=== PATIENT | female | born 1990 | race Caucasian/White ===

== ENCOUNTER 2016-12-28 18:40 | Emergency (ER) | payer MEDICAID ==
[2016-12-28] MEDS ORDERED: METOCLOPRAMIDE HCL 10 MG TABLET PO ONE (19:25)
[2016-12-28] MEDS ORDERED: ACETAMINOPHEN 325 MG TABLET PO ONE (19:25)
[2016-12-28] MEDS ORDERED: DIPHENHYDRAMINE HCL 25 MG CAPSULE PO ONE (19:25)
--- NOTE | 2016-12-28 19:35 | ER Document Report ---
ED Medical Screen (RME) - General Chief Complaint: OB Problem (<20wks) Stated Complaint: FEVER,NAUSEA Mode of Arrival: Ambulatory Information source: Patient Notes: 26-year-old female presents to the ED c/o nausea/vomiting, and fever. Reports associated near syncope worse with prolonged standing or when going from sitting to standing position. Reports is approximately 9 weeks , . Denies lower abd/pelvic pain or vaginal bleeding. I have greeted and performed a rapid initial assessment of this patient. A comprehensive ED assessment and evaluation of the patient, analysis of test results and completion of the medical decision making process will be conducted by additional ED providers. TRAVEL OUTSIDE OF THE [place] IN LAST 30 DAYS: No - Related Data Allergies/Adverse Reactions: doxycycline Allergy (Verified 12/28/16 19:24) Penicillins Allergy (Verified 12/28/16 19:24) Past Medical History - Social History Frequency of alcohol use: None Drug Abuse: None Renal/ Medical History: Denies: Hx Peritoneal Dialysis Past Surgical History: Reports: Hx Section - Immunizations Hx Diphtheria, Pertussis, Tetanus Vaccination: Yes Physical Exam - General General appearance: Appears well, Alert In distress: None - Respiratory Respiratory status: No respiratory distress
[2016-12-28 19:39] VITALS: BP 122/71
[2016-12-28 20:23] LABS: ABSOLUTE LYMPHOCYTES (AUTO) 0.8 10^3/uL (0.5-4.7); ABSOLUTE MONOCYTES (AUTO) 0.7 10^3/uL (0.1-1.4); ABSOLUTE NEUT (AUTO) 14.5 10^3/uL (1.7-8.2); BASOPHILS % (AUTO) 0.2 % (0-2); EOSINOPHILS % (AUTO) 0.1 % (0-6); HEMATOCRIT 38.7 % (36.0-47.0); HEMOGLOBIN 13.2 g/dL (12.0-15.5); HGB HCT DIFFERENCE 0.9; LYMPHOCYTES % (AUTO) 5.2 % (13-45); MEAN CORPUSCULAR HEMOGLOBIN 30.3 pg (27.0-33.4); MEAN CORPUSCULAR HGB CONC 34.2 g/dL (32.0-36.0); MEAN CORPUSCULAR VOLUME 89 fl (80-97); MONOCYTES % (AUTO) 4.2 % (3-13); RED BLOOD COUNT 4.36 10^6/uL (3.72-5.28); RED CELL DISTRIBUTION WIDTH 13.2 % (11.5-14.0); SEGMENTED NEUTROPHILS % (AUTO) 90.3 % (42-78)
[2016-12-28 20:26] LABS: APPEARANCE,URINE CLEAR; BILIRUBIN,URINE NEGATIVE (NEGATIVE); GLUCOSE, URINE NEGATIVE (NEGATIVE); KETONES,URINE NEGATIVE (NEGATIVE); LEUKOCYTE ESTERASE,URINE NEGATIVE (NEGATIVE); NITRITE,URINE NEGATIVE (NEGATIVE); PROTEIN,URINE NEGATIVE (NEGATIVE); URINE SPECIFIC GRAVITY 1.004; UROBILINOGEN,URINE NEGATIVE mg/dL (<2.0)
[2016-12-28 20:38] LABS: ALANINE AMINOTRANSFERASE 20 U/L (9-52); ALBUMIN 4.4 g/dL (3.5-5.0); ALKALINE PHOSPHATASE 70 U/L (38-126); ANION GAP 13 (5-19); ASPARTATE AMINO TRANSFERASE 17 U/L (14-36); BILIRUBIN,TOTAL 0.7 mg/dL (0.2-1.3); BLOOD UREA NITROGEN 8 mg/dL (7-20); CALCIUM 9.6 mg/dL (8.4-10.2); CARBON DIOXIDE 23 mmol/L (22-30); CHLORIDE 100 mmol/L (98-107); CREATININE RESULT 0.52 mg/dL (0.52-1.25); GLUCOSE 93 mg/dL (75-110); POTASSIUM 3.9 mmol/L (3.6-5.0); SODIUM 136.1 mmol/L (137-145); TOTAL PROTEIN 7.1 g/dL (6.3-8.2)
== END 2016-12-28 23:55 | disposition left against medical advice (07) ==
LOC: ER 18:40
DX: O26.91 Pregnancy related conditions, unspecified, first trimester (principal); R50.9 Fever, unspecified; O21.9 Vomiting of pregnancy, unspecified; Z88.0 Allergy status to penicillin
CPT/HCPCS: 99281; 36415; 84702; 85025; 80053; 81001; 87804; J3490 ×3

== ENCOUNTER 2019-06-29 09:06 | Emergency (ER) | payer SELFPAY ==
[2019-06-29 09:12] VITALS: BP 139/88
--- NOTE | 2019-06-29 09:17 | ER Document Report ---
HPI - HPI Time Seen by Provider: 06/29/19 09:15 Pain Level: 4 Notes: 29-year-old female presents the ED for evaluation of a cat bite to her right index finger that she sustained yesterday at 3:30 PM, states it was her friend's cat. Noticed this morning that she had redness to her right index finger, and traveled all the way up to her right upper forearm. Denies any fevers or chills, states she does have some pain in her right index finger. Has not tried any myaw-wcz-zxwlptn medications, has not tried any heat or ice. Her tetanus is not up-to-date. The cat as far she knows does have her rabies vaccination however she is filling out a cat bite form to submit to the health department. Denies fevers, chills, chest pain,palpitations, shortness of breath, dyspnea, nausea, vomiting, diarrhea, abdominal pain, hematuria, vision changes, speech changes, LH, dizziness, syncope, headaches, wheezing, neck pain, weakness, bowel or bladder dysfunction, saddle anesthesia, numbness or tingling in bilateral upper or lower extremities equally, muscle paralysis, weakness in bilateral upper or lower extremities equally or rash. - REPRODUCTIVE Reproductive: DENIES: : Past Medical History - General Information source: Patient - Social History Smoking Status: Unknown if Ever Smoked Family History: Reviewed & Not Pertinent Renal/ Medical History: Denies: Hx Peritoneal Dialysis Past Surgical History: Reports: Hx Section - Immunizations Hx Diphtheria, Pertussis, Tetanus Vaccination: Yes Vertical Provider Document - CONSTITUTIONAL Agree With Documented VS: Yes Exam Limitations: No Limitations General Appearance: WD/WN Notes: PHYSICAL EXAMINATION: GENERAL: Well-appearing, well-nourished and in no acute distress. HEAD: Atraumatic, normocephalic. ENT: Nares patent, oropharynx clear without exudates. Moist mucous membranes. NECK: Normal range of motion, supple without lymphadenopathy LUNGS: Breath sounds clear to auscultation bilaterally and equal. No wheezes rales or rhonchi. HEART: Regular rate and rhythm without murmurs ABDOMEN: Soft, nontender, nondistended abdomen. No guarding, no rebound. No masses appreciated. Female : deferred Musculoskeletal: Normal range of motion, no pitting or edema. No cyanosis. Pain to right 2nd phalange with ntoed erythema and swelling. no pain to wrist with flexion, extension, inversion, eversion of wrist. digits in right and left with full aprom.. [employer] + 2 BUE equally. Snuffbox tenderness negative on right. radial pulses + 2 BUE equally. Negative kanavels sign. No open wounds or drainage from wrist. No vascular compromise.No body crepitus or focal area of TTP. no pain with opposition, flexion, extension, abduction and adduction on right. No pain with passive resistance with extension of right index finger or any fingers on the right hand. nomral motor and sensory function of ulnar, radial, medial nerves intact bilaterally and equally. strength 5/5 in BUE equally. NEUROLOGICAL: Cranial nerves grossly intact. Normal speech, normal gait. Normal sensory, motor exams PSYCH: Normal mood, normal affect. SKIN: Warm, Dry, normal turgor, no rashes or lesions noted. - INFECTION CONTROL TRAVEL OUTSIDE OF THE [place] IN LAST 30 DAYS: No Course - Re-evaluation Re-evalutation: 06/29/19 09:40 Afebrile vital stable no distress. Nurse's notes reviewed. Tetanus immunization given since patient was out of date. Patient had just eaten breakfast prior to arrival of her blood being taken, serum glucose 113, patient is not a diabetic. CBC slight leukocytosis of 11, no anemia, CMP unremarkable hepatic or renal dysfunction.Right finger x-ray was negative for any acute fracture dislocation, no gas noted. 1 g of Rocephin given IM. Erythema on skin marked with a marker, discussed the patient if redness extends out of marked area to return to the ED immediately for further evaluation. Advised to take oral clindamycin and ciprofloxacin due to the fact patient is allergic to penicillins and doxycycline, patient was bitten by cat as well as scratched. Discussed with patient to follow-up with PCP tomorrow morning for reevaluation or she is unable to be reevaluated by her primary care provider to return to the emergency room. After performing a Medical Screening Examination, I estimate there is LOW risk for OPEN FRACTURE, COMPARTMENT SYNDROME, TENDON RUPTURE, ACUTE NEUROVASCULAR INJURY, or RETAINED FOREIGN BODY, thus I consider the discharge disposition reasonable. Also, there is no evidence or peritonitis, sepsis, or toxicity. I have reevaluated this patient multiple times and no significant life threatening changes are noted. The patient and I have discussed the diagnosis and risks, and we agree with discharging home with close follow-up with the understanding that symptoms and presentations can change. We also discussed returning to the Emergency Department immediately if new or worsening symptoms occur. We have discussed the symptoms which are most concerning (e.g., changing or worsening pain, fever, numbness, weakness, cool or painful digits) that necessitate immediate return. 06/29/19 12:18 - Vital Signs Vital signs: Temp Pulse Resp BP Pulse Ox 98.0 F 96 15 139/88 H 95 06/29/19 09:10 06/29/19 09:10 06/29/19 09:10 06/29/19 09:10 06/29/19 09:10 - Laboratory Result Diagrams: 06/29/19 09:35 06/29/19 09:35 Discharge - Discharge Clinical Impression: Cat bite of finger, Cellulitis Condition: Stable Disposition: HOME, SELF-CARE Instructions: Animal Bites ([facility]), Cellulitis ([facility]), Ciprofloxacin ([facility]), Clindamycin ([facility]) Additional Instructions: Please monitor very closely for any signs of infection from your cat bite including spreading redness from the area, pus from the wound, or worsening pain. Clean the area twice daily with soap and water and then apply topical antibiotic ointment. if redness extends out of marked area, return to the ED for re evaluation and IV abx. Please take all the antibiotics that you were prescribed until they are gone. eat yogurt daily to prevent loose stool. Follow-up with your primary care physician as needed. Return immediately for any new or worsening symptoms. Follow up with primary care provider, call tomorrow to make followup appointment. Prescriptions: Ciprofloxacin HCl [Cipro 500 mg Tablet] 500 mg PO BID #20 tablet Clindamycin HCl 300 mg PO Q6H #28 capsule Fluconazole [Diflucan] 150 mg PO ONCE PRN #2 tablet PRN Reason: Forms: Return to Work Referrals: NICHOLAS MCKEON MD [ACTIVE STAFF] - Follow up tomorrow DAVY WILSON MD [ACTIVE PROVISIONAL STAFF] - Follow up as needed
[2019-06-29] MEDS ORDERED: CEFTRIAXONE INJ 1000 MG VIAL IM ONE (09:20)
[2019-06-29] MEDS ORDERED: LIDOCAINE 1% INJ-PF (10 MG/ML) 30 ML SDV INJ ONE (09:20)
[2019-06-29] MEDS ORDERED: DIPH/PERTUSS(ACELL)/TETANUS VAC/PF 0.5 ML SYR (>=10YO) IM ONE (09:36)
[2019-06-29 09:55] LABS: ABSOLUTE BASOPHILS # (AUTO) 0.1 10^3/uL (0.0-0.2); ABSOLUTE EOSINOPHILS # (AUTO) 0.1 10^3/uL (0.0-0.6); ABSOLUTE LYMPHOCYTES (AUTO) 1.5 10^3/uL (0.5-4.7); ABSOLUTE MONOCYTES (AUTO) 1.2 10^3/uL (0.1-1.4); ABSOLUTE NEUT (AUTO) 8.2 10^3/uL (1.7-8.2); BASOPHILS % (AUTO) 0.6 % (0-2); EOSINOPHILS % (AUTO) 0.5 % (0-6); HEMATOCRIT 47.3 % (36.0-47.0); HEMOGLOBIN 15.9 g/dL (12.0-15.5); LYMPHOCYTES % (AUTO) 13.8 % (13-45); MEAN CORPUSCULAR HEMOGLOBIN 30.4 pg (27.0-33.4); MEAN CORPUSCULAR HGB CONC 33.7 g/dL (32.0-36.0); MEAN CORPUSCULAR VOLUME 90 fl (80-97); MONOCYTES % (AUTO) 10.8 % (3-13); PLATELET COUNT 212 10^3/uL (150-450); RED BLOOD COUNT 5.25 10^6/uL (3.72-5.28); RED CELL DISTRIBUTION WIDTH 13.6 % (11.5-14.0); SEGMENTED NEUTROPHILS % (AUTO) 74.3 % (42-78); TOTAL CELLS COUNTED % (AUTO) 100 %
--- NOTE | 2019-06-29 10:06 | RADIOLOGY REPORT (SQ) ---
EXAM DESCRIPTION: FINGER RIGHT COMPLETED DATE/TIME: 06/29/2019 9:36 am REASON FOR STUDY: right index, cat bite, r/o fb/fx COMPARISON: None. NUMBER OF VIEWS: Three views. TECHNIQUE: AP, lateral, and oblique images acquired of the right second finger. LIMITATIONS: None. FINDINGS: MINERALIZATION: Normal. BONES: No acute fracture or dislocation. No worrisome bone lesions. SOFT TISSUES: No soft tissue swelling. No foreign body. OTHER: No other significant finding. IMPRESSION: No fracture or dislocation of the 2nd digit. No radiopaque foreign body. COMMENT: SITE OF TRAUMA/COMPLAINT MARKED/STAMP COMPLETED: YES. TECHNICAL DOCUMENTATION: JOB ID: [id number] [employer]- All Rights Reserved Reading location - IP/workstation name: [email or web address]
[2019-06-29 10:28] LABS: ALBUMIN 4.8 g/dL (3.5-5.0); ALKALINE PHOSPHATASE 120 U/L (38-126); ANION GAP 14 (5-19); ASPARTATE AMINO TRANSFERASE 32 U/L (14-36); BILIRUBIN,DIRECT 0.3 mg/dL (0.0-0.4); BILIRUBIN,TOTAL 0.3 mg/dL (0.2-1.3); BLOOD UREA NITROGEN 13 mg/dL (7-20); CALCIUM 10.3 mg/dL (8.4-10.2); CARBON DIOXIDE 29 mmol/L (22-30); CHLORIDE 94 mmol/L (98-107); GLUCOSE 119 mg/dL (75-110); POTASSIUM 3.9 mmol/L (3.6-5.0); TOTAL PROTEIN 8.1 g/dL (6.3-8.2)
== END 2019-06-29 10:15 | disposition home or self-care (01) ==
LOC: ER 09:06
DX: S61.250A Open bite of right index finger without damage to nail, initial encounter (principal); W55.01XA Bitten by cat, initial encounter; L03.90 Cellulitis, unspecified; D72.829 Elevated white blood cell count, unspecified; Z23 Encounter for immunization
CPT/HCPCS: 36415; 85025; 80053; 73140; 90715; J3490; J0696

== ENCOUNTER 2020-04-13 10:28 | Inpatient (IN) | payer SELFPAY ==
--- NOTE | 2020-04-13 11:01 | ER Document Report ---
ED General - General Chief Complaint: Abnormal Lab Results Stated Complaint: ABNORMAL LABS Time Seen by Provider: 04/13/20 10:59 Mode of Arrival: Medic Information source: Patient Notes: 30-year-old female presents to the emergency department with a four-day history of dysuria lower abdominal pain flank pain fever and nausea and vomiting. She was seen at [facility] yesterday and apparently given IV fluids and IV antibiotics for urinary tract infection. Patient states that she went back today because she has continued to have vomiting and was unable to take the Cipro which she was given as an outpatient. Labs were performed and she was found to have an elevated white blood cell count of 17,000 along with a creatinine of 1.5. She was sent to the emergency department for further e valuation and possible pyelonephritis or early sepsis. TRAVEL OUTSIDE OF THE [place] IN LAST 30 DAYS: No - Related Data Allergies/Adverse Reactions: doxycycline Allergy (Verified 06/29/19 09:08) Penicillins Allergy (Verified 06/29/19 09:08) Past Medical History - Social History Smoking Status: Current Every Day Smoker Family History: Reviewed & Not Pertinent Renal/ Medical History: Denies: Hx Peritoneal Dialysis Past Surgical History: Reports: Hx Section - Immunizations Hx Diphtheria, Pertussis, Tetanus Vaccination: Yes Review of Systems - Review of Systems Notes: Constitutional: + Fever. HENT: Negative for sore throat. Eyes: Negative for visual changes. Cardiovascular: Negative for chest pain. Respiratory: Negative for shortness of breath. Gastrointestinal: Negative for abdominal pain, vomiting or diarrhea. Genitourinary: + Lower abdominal tenderness, dysuria Musculoskeletal: + Flank pain Skin: Negative for rash. Neurological: Negative for headaches, weakness or numbness. 10 point ROS negative except as marked above and in HPI. Physical Exam - Vital signs Vitals: Temp Pulse BP Pulse Ox 98.6 F 123 H 83/52 L 99 04/13/20 10:31 04/13/20 10:31 04/13/20 10:04/13/20 10:31 - Notes Notes: PHYSICAL EXAMINATION: Physical Exam: General: Well-nourished well-developed 30-year-old female appears ill HEENT: NC/AT, pupils equal round and reactive to light, clear dry and cracked, MM moist,nares clear, oropharynx clear, airway patent Neck: supple, no adenopathy, no masses. Good range of motion Lungs: clear, no wheezing, no rales no rhonchi CVS: Regular rate and rhythm no murmur gallop or rub Abdomen: Soft, active, nontender, no masses, no hepatosplenomegaly Back: + CVA tenderness bilaterally Ext: No edema, clubbing or cyanosis. Neuro: Alert and responsive, moving all 4 extremities on command, cranial nerves intact, no focal findings Skin: Intact no open lesions, no rash PSYCH: Normal mood, normal affect. Course - Re-evaluation Re-evalutation: 04/13/20 15:01 Patient is failed outpatient treatment for urinary tract infection no dehydration with hypokalemia hypomagnesia anemia and hyponatremia. She has had multiple vomiting episodes at home and unable to keep down the antibiotics and medicines for vomiting. She is now receiving IV antibiotics and sepsis evaluation is being performed. Lactate was 1.4, patient has some flank pain. CT scan performed unremarkable except for multiple renal cyst and 2 mm right renal calcification likely stone. No hydronephrosis is noted. The patient has been recommended for hospitalization, the hospitalist Dr. Best was called states that he will see the patient in the emergency department to determine level of care needed in the hospital. - Vital Signs Vital signs: Temp Pulse Resp BP Pulse Ox 100.3 F 100 16 115/57 L 100 04/13/20 18:21 04/13/20 18:21 04/13/20 18:21 04/13/20 18:21 04/13/20 18:21 - Laboratory Result Diagrams: 04/13/20 10:50 04/13/20 10:50 Laboratory results interpreted by me: 04/13/20 04/13/20 04/13/20 10:50 10:50 10:50 WBC 13.6 H Plt Count 102 L Seg Neuts % (Manual) 91 H Lymphocytes % (Manual) 2 L Abs Neuts (Manual) 12.9 H Abs Lymphs (Manual) 0.3 L Sodium 129.1 L Potassium 3.0 L* Chloride 92 L BUN 35 H Creatinine 1.78 H Est GFR ( Amer) 40 L Est GFR (MDRD) Non-Af 33 L Glucose 121 H Calcium 6.7 L* Magnesium 0.9 L* AST 55 H Total Protein 5.9 L Albumin 2.9 L Urine Protein Urine Blood Ur Leukocyte Esterase 04/13/20 13:30 WBC Plt Count Seg Neuts % (Manual) Lymphocytes % (Manual) Abs Neuts (Manual) Abs Lymphs (Manual) Sodium Potassium Chloride BUN Creatinine Est GFR ( Amer) Est GFR (MDRD) Non-Af Glucose Calcium Magnesium AST Total Protein Albumin Urine Protein 100 H Urine Blood LARGE H Ur Leukocyte Esterase LARGE H - Diagnostic Test Radiology reviewed: Image reviewed, Reports reviewed - CT abdomen and pelvis with noncontrast: No acute findings, multiple bilateral renal cysts identified, right 2 mm renal calcification with no hydronephrosis noted. Discharge - Discharge Clinical Impression: Volume depletion, ROSALINA (acute kidney injury), Hyponatremia, Hypokalemia, Hypomagnesemia Urinary tract infection Qualifiers: Urinary tract infection type: acute cystitis Hematuria presence: without hematuria Qualified Code(s): N30.00 - Acute cystitis without hematuria Condition: Fair Disposition: ADMITTED INPATIENT Admitting Provider: Nasir (Hospitalist) Unit Admitted: Telemetry
[2020-04-13 11:11] LABS: HEMOGLOBIN 13.9 g/dL (12.0-15.5); MEAN CORPUSCULAR HEMOGLOBIN 32.6 pg (27.0-33.4); MEAN CORPUSCULAR HGB CONC 34.7 g/dL (32.0-36.0); MEAN CORPUSCULAR VOLUME 94 fl (80-97); PLATELET COUNT 102 10^3/uL (150-450); RED BLOOD COUNT 4.26 10^6/uL (3.72-5.28); RED CELL DISTRIBUTION WIDTH 13.5 % (11.5-14.0); WHITE BLOOD COUNT 13.6 10^3/uL (4.0-10.5)
[2020-04-13] MEDS ORDERED: NORMAL SALINE 1000 ML 1,500 ML IV PRN (11:18)
[2020-04-13] MEDS ORDERED: CEFTRIAXONE INJ 1000 MG VIAL IV ONE (11:21)
[2020-04-13 11:30] LABS: ALBUMIN 2.9 g/dL (3.5-5.0); ALKALINE PHOSPHATASE 72 U/L (38-126); ANION GAP 9 (5-19); ASPARTATE AMINO TRANSFERASE 55 U/L (14-36); BILIRUBIN,DIRECT 0.1 mg/dL (0.0-0.4); BILIRUBIN,TOTAL 0.4 mg/dL (0.2-1.3); BLOOD UREA NITROGEN 35 mg/dL (7-20); CARBON DIOXIDE 28 mmol/L (22-30); CHLORIDE 92 mmol/L (98-107); GLUCOSE 121 mg/dL (75-110); TOTAL PROTEIN 5.9 g/dL (6.3-8.2)
[2020-04-13 11:31] LABS: ABSOLUTE LYMPHOCYTES# (MANUAL) 0.3 10^3/uL (0.5-4.7); ABSOLUTE MONOCYTES # (MANUAL) 0.4 10^3/uL (0.1-1.4); BAND NEUTROPHILS % (MANUAL) 4 % (3-5); BASOPHILS % (MANUAL) 0 % (0-2); EOSINOPHILS % (MANUAL) 0 % (0-6); LYMPHOCYTES % (MANUAL) 2 % (13-45); MONOCYTES % (MANUAL) 3 % (3-13); SEGMENTED NEUTROPHILS % (MAN) 91 % (42-78); TOTAL CELLS COUNTED 100
[2020-04-13 11:32] LABS: RBC MORPHOLOGY COMMENT NORMO-CYTIC/CHROMIC
[2020-04-13] MEDS ORDERED: ONDANSETRON HCL INJ/PF 4 MG/2 ML SDV IV ONE (11:32)
[2020-04-13] MEDS ORDERED: MORPHINE SULFATE 10 MG/ML INJ IV ONE ×2 (11:32→14:52)
[2020-04-13 11:33] LABS: PLATELET COMMENT DECREASED
[2020-04-13 11:39] LABS: CALCIUM 6.7 mg/dL (8.4-10.2)
--- NOTE | 2020-04-13 12:55 | RADIOLOGY REPORT (SQ) ---
EXAM DESCRIPTION: CT ABD/PELVIS NO ORAL OR IV IMAGES COMPLETED DATE/TIME: 04/13/2020 12:19 pm REASON FOR STUDY: Bilateral flank pain COMPARISON: 10/18/2016 TECHNIQUE: CT scan of the abdomen and pelvis performed without intravenous or oral contrast. Images reviewed with lung, soft tissue, and bone windows. Reconstructed coronal and sagittal MPR images revi ewed. All images stored on PACS. All CT scanners at this facility use dose modulation, iterative reconstruction, and/or weight based d osing when appropriate to reduce radiation dose to as low as reasonably achievable (ALARA). [facility]: Dose Right [facility]: CareDose [facility]: Dose Right [facility]: Teradose 4D [facility]: Smart [employer] RADIATION DOSE: CT Rad equipment meets quality standard of care and radiation dose reduction techniq ues were employed. CTDIvol: 4.8 mGy. DLP: 248 mGy-cm.mGy. LIMITATIONS: None. FINDINGS: LOWER CHEST: No significant findings. No nodules or infiltrates. NON-CONTRASTED LIVER, SPLEEN, ADRENALS: Evaluation limited by lack of IV contrast. No identified sign ificant masses. PANCREAS: No masses. No peripancreatic inflammatory changes. GALLBLADDER: No calcified stones. No inflammatory changes to suggest cholecystitis. RIGHT KIDNEY AND URETER: Multiple cysts identified, generally increased in size and number. There are few 2 mm calcified stones. No hydronephrosis or hydroureter. LEFT KIDNEY AND URETER: Multiple cysts identified, generally increased in size and number.. No calcif ied stones. No hydronephrosis or hydroureter. AORTA AND RETROPERITONEUM: No aneurysm. No retroperitoneal masses or adenopathy. BOWEL AND PERITONEAL CAVITY: No obvious masses or inflammatory changes. No free fluid. APPENDIX: Normal. PELVIS, BLADDER, AND ABDOMINAL WALL:No abnormal masses. No free fluid. Unremarkable bladder. BONES: No acute findings. OTHER: No other significant finding. IMPRESSION: NO ACUTE FINDINGS.Multiple bilateral renal cysts identified, generally increased in size and number. There are few 2 mm right renal calcified stones. No calcified ureteral stones or hydrone phrosis-hydroureter. TECHNICAL DOCUMENTATION: JOB ID: [id number] Quality ID # [id number]: Final reports with documentation of one or more dose reduction techniques (e.g., Au tomated exposure control, adjustment of the mA and/or kV according to patient size, use of iterative reconstruction technique) 2010 [employer]- All Rights Reserved Reading location - IP/workstation name: [email or web address]
[2020-04-13] MEDS ORDERED: POTASSIUM CHLORIDE 10 MEQ TABLET.ER PO ONE (14:16)
[2020-04-13] MEDS ORDERED: POTASSI CL 20 MEQ/50 ML RIDER 20 MEQ/50 ML RTUPB IV ONE (14:16)
[2020-04-13 14:28] LABS: AMORPHOUS SEDIMENT,URINE TRACE /HPF; APPEARANCE,URINE CLOUDY; BILIRUBIN,URINE NEGATIVE (NEGATIVE); COLOR,URINE AMBER; GLUCOSE, URINE NEGATIVE (NEGATIVE); KETONES,URINE NEGATIVE (NEGATIVE); LEUKOCYTE ESTERASE,URINE LARGE (NEGATIVE); NITRITE,URINE NEGATIVE (NEGATIVE); PROTEIN,URINE 100 mg/dL (NEGATIVE); URINE SPECIFIC GRAVITY 1.013; UROBILINOGEN,URINE NEGATIVE mg/dL (<2.0)
[2020-04-13] MEDS: MAGNESIUM SULFATE/D5W 1 GM/100 ML RTUPB IV SCH ×2 (15:31→17:03)
--- NOTE | 2020-04-13 15:56 | PDOC H&P ---
History of Present Illness History of Present Illness: NICHOLAS WHITE is a 30 year old female with no significant past medical history who presents with fever and abnormal labs. She first got sick about a week ago she had some nausea and vomiting. She states she could not keep anything down for several days. She has had some nonspecific abdominal pain. She has had some intermittent dysuria. She went to [facility] a couple of days ago when they diagnosed her with a urinary tract infection and gave her some IV fluids and a shot of IV Rocephin. I gave her a prescription for Cipro but she says she has not been able to keep it down. They called her back and told her she needed to go to the hospital because she had a bunch of laboratory abnormalities. In addition to an abnormal urinalysis, she has a leukocytosis, hypokalemia, hypomagnesemia, and hypocalcemia. She also has an elevated creatinine. She has been treated for pyelonephritis in the past. Past Surgical History Past Surgical History: Reports: Section Social History Smoking Status: Unknown if Ever Smoked Family History Family History: Reviewed & Not Pertinent Parental Family History Reviewed: Yes Children Family History Reviewed: Yes Sibling(s) Family History Reviewed.: Yes Medication/Allergy Home Medications: Ciprofloxacin HCl [Cipro 500 mg Tablet] 500 mg PO BID #20 tablet 10/18/16 Hydrocodone/Acetaminophen [Brandon 5-325 mg Tablet] 1 tab PO Q6H PRN #8 tablet 10/18/16 Promethazine HCl [Phenergan 25 mg Tablet] 25 mg PO Q8H PRN #10 tablet 10/18/16 Ciprofloxacin HCl [Cipro 500 mg Tablet] 500 mg PO BID #20 tablet 06/29/19 Clindamycin HCl 300 mg PO Q6H #28 capsule 06/29/19 Fluconazole [Diflucan] 150 mg PO ONCE PRN #2 tablet 06/29/19 Allergies/Adverse Reactions: doxycycline Allergy (Verified 06/29/19 09:08) Penicillins Allergy (Verified 06/29/19 09:08) Review of Systems All systems: reviewed and no additional remarkable complaints except as stated - All systems were reviewed and were negative except as noted in the HPI Physical Exam Vital Signs: Temp Pulse Resp BP Pulse Ox 99.3 F 123 H 16 106/62 100 04/13/20 11:05 04/13/20 10:31 04/13/20 14:01 04/13/20 14:00 04/13/20 14:01 Intake & Output 04/12/20 04/13/20 04/14/20 06:59 06:59 06:59 Intake Total 1500 Balance 1500 Weight 49.895 kg General appearance: PRESENT: no acute distress, cooperative, disheveled, thin Head exam: PRESENT: atraumatic, normocephalic Eye exam: PRESENT: EOMI, PERRLA. ABSENT: conjunctival injection, nystagmus Ear exam: PRESENT: normal external ear exam Mouth exam: PRESENT: dry mucosa, neck supple Throat exam: ABSENT: post pharyngeal erythema Neck exam: PRESENT: full ROM. ABSENT: carotid bruit, JVD, lymphadenopathy, meningismus, tenderness, thyromegaly Respiratory exam: PRESENT: clear to auscultation dariel, symmetrical, unlabored. ABSENT: accessory muscle use, chest wall tenderness, crackles, prolonged expiratory phas, rhonchi, tachypnea, wheezes Cardiovascular exam: PRESENT: +S1, +S2, tachycardia Pulses: PRESENT: normal carotid pulses Vascular exam: PRESENT: normal capillary refill GI/Abdominal exam: PRESENT: normal bowel sounds, soft. ABSENT: distended, guarding, rebound, tenderness Extremities exam: ABSENT: clubbing, pedal edema Musculoskeletal exam: PRESENT: normal inspection. ABSENT: deformity Neurological exam: PRESENT: alert, awake, oriented to person, oriented to place, oriented to time, oriented to situation, CN II-XII grossly intact. ABSENT: motor sensory deficit Psychiatric exam: PRESENT: appropriate affect, normal mood Skin exam: PRESENT: dry, warm Results Laboratory Results: 04/13/20 10:50 04/13/20 10:50 04/13/20 04/13/20 04/13/20 10:50 10:50 10:50 WBC 13.6 H RBC 4.26 Hgb 13.9 Hct 40.0 MCV 94 MCH 32.6 MCHC 34.7 RDW 13.5 Plt Count 102 L Seg Neutrophils % Not Reportable Sodium 129.1 L Potassium 3.0 L* Chloride 92 L Carbon Dioxide 28 Anion Gap 9 BUN 35 H Creatinine 1.78 H Est GFR ( Amer) 40 L Glucose 121 H Lactic Acid Calcium 6.7 L* Magnesium 0.9 L* Total Bilirubin 0.4 AST 55 H Alkaline Phosphatase 72 Total Protein 5.9 L Albumin 2.9 L Urine Color Urine Appearance Urine pH Ur Specific Tippo Urine Protein Urine Glucose (UA) Urine Ketones Urine Blood Urine Nitrite Ur Leukocyte Esterase Urine WBC (Auto) Urine RBC (Auto) 04/13/20 04/13/20 04/13/20 11:39 13:30 13:30 WBC RBC Hgb Hct MCV MCH MCHC RDW Plt Count Seg Neutrophils % Sodium Potassium Chloride Carbon Dioxide Anion Gap BUN Creatinine Est GFR ( Amer) Glucose Lactic Acid 1.3 1.1 Calcium Magnesium Total Bilirubin AST Alkaline Phosphatase Total Protein Albumin Urine Color VIVIAN Urine Appearance CLOUDY Urine pH 5.0 Ur Specific [place]ippo 1.013 Urine Protein 100 H Urine Glucose (UA) NEGATIVE Urine Ketones NEGATIVE Urine Blood LARGE H Urine Nitrite NEGATIVE Ur Leukocyte Esterase LARGE H Urine WBC (Auto) 141 Urine RBC (Auto) 35 Impressions: Abdomen/Pelvis CT 04/13/20 11:31 IMPRESSION: NO ACUTE FINDINGS.Multiple bilateral renal cysts identified, generally increased in size and number. There are few 2 mm right renal calcified stones. No calcified ureteral stones or hydronephrosis-hydroureter. Assessment and Plan - Diagnosis (1) Sepsis Qualifiers: Sepsis type: sepsis due to unspecified organism Sepsis acute organ dysfunction status: with acute organ dysfunction Severe sepsis acute organ dysfunction type: acute renal failure Acute renal failure type: with acute tubular necrosis Severe sepsis shock status: without septic shock Qualified Code(s): A41.9 - Sepsis, unspecified organism; R65.20 - Severe sepsis without septic shock; N17.0 - Acute kidney failure with tubular necrosis Is this a current diagnosis for this admission?: Yes Plan: She had a fluid bolus in the ER. Continue to get IV fluids. Will monitor urine output. On empiric antibiotics for urinary tract infection. (2) Dehydration Is this a current diagnosis for this admission?: Yes Plan: IV fluids, monitor urine output (3) Nausea and vomiting Qualifiers: Vomiting type: bilious vomiting Qualified Code(s): R11.14 - Bilious vomiting Is this a current diagnosis for this admission?: Yes Plan: PRN Lynn (4) ROSALINA (acute kidney injury) Is this a current diagnosis for this admission?: Yes Plan: Suspect to be due to dehydration. Will give IV fluids and will repeat metabolic panel. (5) Hypokalemia Is this a current diagnosis for this admission?: Yes Plan: We will replace with IV supplement (6) Hypomagnesemia Is this a current diagnosis for this admission?: Yes Plan: Replace with IV supplement (7) Urinary tract infection Qualifiers: Urinary tract infection type: acute cystitis Hematuria presence: without hematuria Qualified Code(s): N30.00 - Acute cystitis without hematuria Is this a current diagnosis for this admission?: Yes Plan: CT of the abdomen and pelvis was negative for pyelonephritis. Urine cultures pending. Empiric blood cultures were checked. Empirically on Rocephin. (8) Hypocalcemia Is this a current diagnosis for this admission?: Yes Plan: Place with IV supplements (9) Hyponatremia Is this a current diagnosis for this admission?: Yes Plan: Likely due to volume depletion. Will give IV fluids and repeat metabolic panel. - Time Time Spent with patient: 35 or more minutes - Inpatient Certification Based on my medical assessment, after consideration of the patient's comorbidities, presenting symptoms, or acuity I expect that the services needed warrant INPATIENT care.: Yes I certify that my determination is in accordance with my understanding of Medicare's requirements for reasonable and necessary INPATIENT services [42 CFR 412.3e].: Yes Medical Necessity: Failure to Improve With Outpatient Therapy, Need Close Monitoring Due to Risk of Patient Decompensation, Need For IV Fluids, Need For Continuous Telemetry Monitoring, Need for IV Antibiotics, Risk of Complication if Not Cared For in Hospital
[2020-04-13] MEDS: CALCIUM GLUC IN NACL, ISO-OSM 1 GM/50 ML RTUPB IV SCH (17:02)
[2020-04-13] MEDS: ONDANSETRON HCL INJ/PF 4 MG/2 ML SDV IV PRN (17:56)
[2020-04-13] MEDS: ACETAMINOPHEN 325 MG TABLET PO PRN (19:47)
[2020-04-13] MEDS: HEPARIN SOD (PORCINE) 5,000 UNIT/ML 1 ML VIAL SUBCUT SCH (23:16)
[2020-04-14] MEDS: ONDANSETRON HCL INJ/PF 4 MG/2 ML SDV IV PRN ×2 (01:04→10:32)
[2020-04-14] MEDS: ACETAMINOPHEN 325 MG TABLET PO PRN (05:48)
[2020-04-14] MEDS: HEPARIN SOD (PORCINE) 5,000 UNIT/ML 1 ML VIAL SUBCUT SCH ×3 (06:10→21:52)
[2020-04-14 06:35] LABS: HEMATOCRIT 35.4 % (36.0-47.0); MEAN CORPUSCULAR HEMOGLOBIN 32.3 pg (27.0-33.4); MEAN CORPUSCULAR HGB CONC 33.9 g/dL (32.0-36.0); MEAN CORPUSCULAR VOLUME 95 fl (80-97); RED BLOOD COUNT 3.73 10^6/uL (3.72-5.28); RED CELL DISTRIBUTION WIDTH 13.9 % (11.5-14.0); WHITE BLOOD COUNT 9.7 10^3/uL (4.0-10.5)
[2020-04-14 07:03] LABS: BLOOD UREA NITROGEN 24 mg/dL (7-20); CARBON DIOXIDE 27 mmol/L (22-30); CHLORIDE 99 mmol/L (98-107); GLUCOSE 121 mg/dL (75-110); POTASSIUM 3.5 mmol/L (3.6-5.0)
[2020-04-14 07:06] LABS: PLATELET COUNT 93 10^3/uL (150-450)
[2020-04-14 07:38] LABS: ANION GAP 4 (5-19)
[2020-04-14] MEDS: CALCIUM GLUC IN NACL, ISO-OSM 1 GM/50 ML RTUPB IV SCH ×2 (08:59→10:28)
[2020-04-14] MEDS: CEFTRIAXONE 1 GM/D5W RTU 1 GM/50 ML RTUPB IV SCH (10:28)
[2020-04-14] MEDS: IBUPROFEN 600 MG TABLET PO PRN ×2 (11:23→19:36)
--- NOTE | 2020-04-14 16:45 | PDOC PROGRESS REPORT ---
Subjective Progress Note for:: 04/14/20 Subjective:: No adverse events overnight. No new complaints. Vital signs been stable. Appetite is starting to improve but is still pretty poor. No fevers. Good urine output. Reason For Visit: SEPSIS,PYELONEPHRITIS Physical Exam Vital Signs: Temp Pulse Resp BP Pulse Ox 98.4 F 75 16 124/63 100 04/14/20 14:00 04/14/20 14:00 04/14/20 14:00 04/14/20 14:00 04/14/20 14:00 Intake & Output 04/13/20 04/14/20 04/15/20 06:59 06:59 06:59 Intake Total 1750 450 Balance 1750 450 Weight 52 kg General appearance: PRESENT: no acute distress, cooperative, disheveled, thin Respiratory exam: PRESENT: clear to auscultation dariel, symmetrical, unlabored. ABSENT: accessory muscle use, chest wall tenderness, crackles, prolonged expiratory phas, rhonchi, tachypnea, wheezes Cardiovascular exam: PRESENT: RRR, +S1, +S2 Pulses: PRESENT: normal carotid pulses Vascular exam: PRESENT: normal capillary refill GI/Abdominal exam: PRESENT: normal bowel sounds, soft. ABSENT: distended, guarding, rebound, tenderness Extremities exam: ABSENT: clubbing, pedal edema Musculoskeletal exam: PRESENT: normal inspection. ABSENT: deformity Neurological exam: PRESENT: alert, awake, oriented to person, oriented to place, oriented to situation Psychiatric exam: PRESENT: appropriate affect, normal mood Skin exam: PRESENT: dry, warm Results Laboratory Results: 04/14/20 06:07 04/14/20 06:07 04/13/20 04/13/20 04/14/20 19:00 20:00 06:07 WBC 9.7 RBC 3.73 Hgb 12.0 Hct 35.4 L MCV 95 MCH 32.3 MCHC 33.9 RDW 13.9 Plt Count 93 L Sodium Potassium Chloride Carbon Dioxide Anion Gap BUN Creatinine Est GFR ( Amer) Glucose Lactic Acid Cancelled 1.7 Calcium Magnesium 04/14/20 06:07 WBC RBC Hgb Hct MCV MCH MCHC RDW Plt Count Sodium 130.2 L Potassium 3.5 L Chloride 99 Carbon Dioxide 27 Anion Gap 4 L BUN 24 H Creatinine 1.16 Est GFR ( Amer) > 60 Glucose 121 H Lactic Acid Calcium 7.0 L* Magnesium 1.9 D 04/13/20 13:30 Blood Blood Culture (PCR) - Final Impressions: Abdomen/Pelvis CT 04/13/20 11:31 IMPRESSION: NO ACUTE FINDINGS.Multiple bilateral renal cysts identified, generally increased in size and number. There are few 2 mm right renal calcified stones. No calcified ureteral stones or hydronephrosis-hydroureter. Assessment and Plan - Diagnosis (1) Sepsis Qualifiers: Sepsis type: sepsis due to unspecified organism Sepsis acute organ dysfunction status: with acute organ dysfunction Severe sepsis acute organ dysfunction type: acute renal failure Acute renal failure type: with acute tubular necrosis Severe sepsis shock status: without septic shock Qualified Code(s): A41.9 - Sepsis, unspecified organism; R65.20 - Severe sepsis without septic shock; N17.0 - Acute kidney failure with tubular necrosis Is this a current diagnosis for this admission?: Yes Plan: Improving. White blood cell count coming down. Good urine output. Creatinine has improved. (2) Dehydration Is this a current diagnosis for this admission?: Yes Plan: Resolving. Continue IV fluids. (3) Nausea and vomiting Qualifiers: Vomiting type: bilious vomiting Qualified Code(s): R11.14 - Bilious vomiting Is this a current diagnosis for this admission?: Yes Plan: Resolved (4) ROSALINA (acute kidney injury) Is this a current diagnosis for this admission?: Yes Plan: Resolved (5) Hypokalemia Is this a current diagnosis for this admission?: Yes Plan: Resolved (6) Hypomagnesemia Is this a current diagnosis for this admission?: Yes Plan: Resolved (7) Urinary tract infection Qualifiers: Urinary tract infection type: acute cystitis Hematuria presence: without hematuria Qualified Code(s): N30.00 - Acute cystitis without hematuria Is this a current diagnosis for this admission?: Yes Plan: Improving on Rocephin. Her blood cultures are showing something that has not been positively identified yet, will following up on that. (8) Hypocalcemia Is this a current diagnosis for this admission?: Yes Plan: Replace with IV supplements (9) Hyponatremia Is this a current diagnosis for this admission?: Yes Plan: improving with IV fluids - Time Time Spent with patient: 25-34 minutes
[2020-04-14] MEDS: RINGERS SOLUTION,LACTATED 1,000 ML IV PRN (17:58)
[2020-04-15 02:57] LABS: C DIFFICILE GDH NEGATIVE (NEGATIVE)
[2020-04-15] MEDS: RINGERS SOLUTION,LACTATED 1,000 ML IV PRN (03:38)
[2020-04-15] MEDS ORDERED: LOPERAMIDE HCL 2 MG CAPSULE PO ONE (05:00)
[2020-04-15] MEDS: HEPARIN SOD (PORCINE) 5,000 UNIT/ML 1 ML VIAL SUBCUT SCH ×3 (05:07→22:43)
[2020-04-15 06:57] LABS: HEMATOCRIT 36.3 % (36.0-47.0); HEMOGLOBIN 12.5 g/dL (12.0-15.5); MEAN CORPUSCULAR HEMOGLOBIN 32.6 pg (27.0-33.4); MEAN CORPUSCULAR HGB CONC 34.6 g/dL (32.0-36.0); MEAN CORPUSCULAR VOLUME 94 fl (80-97); PLATELET COUNT 103 10^3/uL (150-450); RED BLOOD COUNT 3.85 10^6/uL (3.72-5.28); WHITE BLOOD COUNT 8.7 10^3/uL (4.0-10.5)
[2020-04-15 07:23] LABS: ANION GAP 6 (5-19); BLOOD UREA NITROGEN 16 mg/dL (7-20); CALCIUM 8.4 mg/dL (8.4-10.2); CARBON DIOXIDE 26 mmol/L (22-30); CHLORIDE 102 mmol/L (98-107); GLUCOSE 88 mg/dL (75-110); POTASSIUM 3.7 mmol/L (3.6-5.0)
[2020-04-15] MEDS: IBUPROFEN 600 MG TABLET PO PRN ×2 (07:41→17:30)
[2020-04-15] MEDS: ONDANSETRON HCL INJ/PF 4 MG/2 ML SDV IV PRN ×2 (07:45→17:31)
[2020-04-15] MEDS: CEFTRIAXONE 1 GM/D5W RTU 1 GM/50 ML RTUPB IV SCH (09:31)
--- NOTE | 2020-04-15 14:53 | PDOC PROGRESS REPORT ---
Subjective Progress Note for:: 04/15/20 Subjective:: No adverse events overnight. No fevers. Good urine output. 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 She had a shower today and feels much better. Reason For Visit: SEPSIS,PYELONEPHRITIS Physical Exam Vital Signs: Temp Pulse Resp BP Pulse Ox 98.1 F 58 L 17 126/70 H 100 04/15/20 14:00 04/15/20 14:00 04/15/20 14:00 04/15/20 14:00 04/15/20 14:00 Intake & Output 04/14/20 04/15/20 04/16/20 06:59 06:59 06:59 Intake Total 1750 1667 766 Balance 1750 1667 766 Weight 52 kg 55.2 kg General appearance: PRESENT: no acute distress, cooperative, disheveled, thin Respiratory exam: PRESENT: clear to auscultation dariel, symmetrical, unlabored. ABSENT: accessory muscle use, chest wall tenderness, crackles, prolonged expiratory phas, rhonchi, tachypnea, wheezes Cardiovascular exam: PRESENT: RRR, +S1, +S2 Pulses: PRESENT: normal carotid pulses Vascular exam: PRESENT: normal capillary refill GI/Abdominal exam: PRESENT: normal bowel sounds, soft. ABSENT: distended, guarding, rebound, tenderness Extremities exam: ABSENT: clubbing, pedal edema Musculoskeletal exam: PRESENT: normal inspection. ABSENT: deformity Neurological exam: PRESENT: alert, awake, oriented to person, oriented to place, oriented to situation Psychiatric exam: PRESENT: appropriate affect, normal mood Skin exam: PRESENT: dry, warm Results Laboratory Results: 04/15/20 06:13 04/15/20 06:13 04/15/20 04/15/20 06:13 06:13 WBC 8.7 RBC 3.85 Hgb 12.5 Hct 36.3 MCV 94 MCH 32.6 MCHC 34.6 RDW 14.0 Plt Count 103 L Sodium 133.7 L Potassium 3.7 Chloride 102 Carbon Dioxide 26 Anion Gap 6 BUN 16 Creatinine 0.78 Est GFR ( Amer) > 60 Glucose 88 Calcium 8.4 Magnesium 1.7 04/13/20 13:30 Blood Blood Culture (PCR) - Final Impressions: Abdomen/Pelvis CT 04/13/20 11:31 IMPRESSION: NO ACUTE FINDINGS.Multiple bilateral renal cysts identified, generally increased in size and number. There are few 2 mm right renal calcified stones. No calcified ureteral stones or hydronephrosis-hydroureter. Assessment and Plan - Diagnosis (1) Sepsis Qualifiers: Sepsis type: sepsis due to unspecified organism Sepsis acute organ dysfunction status: with acute organ dysfunction Severe sepsis acute organ dysfunction type: acute renal failure Acute renal failure type: with acute tubular necrosis Severe sepsis shock status: without septic shock Qualified Code(s): A41.9 - Sepsis, unspecified organism; R65.20 - Severe sepsis without septic shock; N17.0 - Acute kidney failure with tubular necrosis Is this a current diagnosis for this admission?: Yes Plan: Resolved (2) Dehydration Is this a current diagnosis for this admission?: Yes Plan: Resolved, IV fluids discontinued. (3) Nausea and vomiting Qualifiers: Vomiting type: bilious vomiting Qualified Code(s): R11.14 - Bilious vomiting Is this a current diagnosis for this admission?: Yes Plan: Resolved (4) ROSALINA (acute kidney injury) Is this a current diagnosis for this admission?: Yes Plan: Resolved (5) Hypokalemia Is this a current diagnosis for this admission?: Yes Plan: Resolved (6) Hypomagnesemia Is this a current diagnosis for this admission?: Yes Plan: Resolved (7) Urinary tract infection Qualifiers: Urinary tract infection type: acute cystitis Hematuria presence: without hematuria Qualified Code(s): N30.00 - Acute cystitis without hematuria Is this a current diagnosis for this admission?: Yes Plan: Improving on Rocephin. Her blood cultures are showing something that has not been positively identified yet, will following up on that. (8) Hypocalcemia Is this a current diagnosis for this admission?: Yes Plan: We will replace as needed (9) Hyponatremia Is this a current diagnosis for this admission?: Yes Plan: improving with IV fluids (10) Bacteremia due to Gram-negative bacteria Is this a current diagnosis for this admission?: Yes Plan: Following up culture results to see if we can transition her to an oral antibiotic - Time Time Spent with patient: 25-34 minutes
[2020-04-15] MEDS: LACTOBACILLUS ACIDOPHILUS 250 MG TAB PO SCH (17:31)
[2020-04-16 05:57] LABS: HEMATOCRIT 35.4 % (36.0-47.0); HEMOGLOBIN 12.1 g/dL (12.0-15.5); MEAN CORPUSCULAR HEMOGLOBIN 32.5 pg (27.0-33.4); MEAN CORPUSCULAR HGB CONC 34.2 g/dL (32.0-36.0); MEAN CORPUSCULAR VOLUME 95 fl (80-97); PLATELET COUNT 141 10^3/uL (150-450); RED BLOOD COUNT 3.73 10^6/uL (3.72-5.28); WHITE BLOOD COUNT 6.2 10^3/uL (4.0-10.5)
[2020-04-16] MEDS: HEPARIN SOD (PORCINE) 5,000 UNIT/ML 1 ML VIAL SUBCUT SCH ×3 (06:03→21:26)
[2020-04-16 06:16] LABS: ANION GAP 5 (5-19); BLOOD UREA NITROGEN 12 mg/dL (7-20); CALCIUM 8.1 mg/dL (8.4-10.2); CARBON DIOXIDE 29 mmol/L (22-30); CHLORIDE 101 mmol/L (98-107); GLUCOSE 150 mg/dL (75-110); POTASSIUM 3.4 mmol/L (3.6-5.0)
[2020-04-16] MEDS: ACETAMINOPHEN 325 MG TABLET PO PRN ×2 (07:43→17:21)
[2020-04-16] MEDS: LACTOBACILLUS ACIDOPHILUS 250 MG TAB PO SCH ×2 (10:26→17:21)
[2020-04-16] MEDS: CEFTRIAXONE 1 GM/D5W RTU 1 GM/50 ML RTUPB IV SCH (10:26)
--- NOTE | 2020-04-16 16:40 | PDOC PROGRESS REPORT ---
Subjective Progress Note for:: 04/16/20 Subjective:: No adverse events overnight. No new complaints. She had a fever of 100.9 Fahrenheit this morning. She states she feels better now. No dysuria. No flank pain. Reason For Visit: SEPSIS,PYELONEPHRITIS Physical Exam Vital Signs: Temp Pulse Resp BP Pulse Ox 98.7 F 54 L 16 113/57 L 100 04/16/20 10:49 04/16/20 14:00 04/16/20 10:49 04/16/20 10:49 04/16/20 10:49 Intake & Output 04/15/20 04/16/20 04/17/20 06:59 06:59 06:59 Intake Total 1667 3376 170 Balance 1667 3376 170 Weight 55.2 kg 53.8 kg General appearance: PRESENT: no acute distress, cooperative, disheveled, thin Respiratory exam: PRESENT: clear to auscultation dariel, symmetrical, unlabored. ABSENT: accessory muscle use, chest wall tenderness, crackles, prolonged expiratory phas, rhonchi, tachypnea, wheezes Cardiovascular exam: PRESENT: RRR, +S1, +S2 Pulses: PRESENT: normal carotid pulses Vascular exam: PRESENT: normal capillary refill GI/Abdominal exam: PRESENT: normal bowel sounds, soft. ABSENT: distended, guarding, rebound, tenderness Extremities exam: ABSENT: clubbing, pedal edema Musculoskeletal exam: PRESENT: normal inspection. ABSENT: deformity Neurological exam: PRESENT: alert, awake, oriented to person, oriented to place, oriented to situation Psychiatric exam: PRESENT: appropriate affect, normal mood Skin exam: PRESENT: dry, warm Results Laboratory Results: 04/16/20 05:43 04/16/20 05:43 04/16/20 04/16/20 05:43 05:43 WBC 6.2 RBC 3.73 Hgb 12.1 Hct 35.4 L MCV 95 MCH 32.5 MCHC 34.2 RDW 14.0 Plt Count 141 L Sodium 135.1 L Potassium 3.4 L Chloride 101 Carbon Dioxide 29 Anion Gap 5 BUN 12 Creatinine 0.67 Est GFR ( Amer) > 60 Glucose 150 H Calcium 8.1 L Magnesium 1.5 L 04/13/20 13:30 Blood Blood Culture (PCR) - Final 04/13/20 13:30 Blood Blood Culture - Final Acinetobacter Species Impressions: Abdomen/Pelvis CT 04/13/20 11:31 IMPRESSION: NO ACUTE FINDINGS.Multiple bilateral renal cysts identified, generally increased in size and number. There are few 2 mm right renal calcified stones. No calcified ureteral stones or hydronephrosis-hydroureter. Assessment and Plan - Diagnosis (1) Sepsis Qualifiers: Sepsis type: sepsis due to unspecified organism Sepsis acute organ dysfunction status: with acute organ dysfunction Severe sepsis acute organ dysfunction type: acute renal failure Acute renal failure type: with acute tubular necrosis Severe sepsis shock status: without septic shock Qualified Code(s): A41.9 - Sepsis, unspecified organism; R65.20 - Severe sepsis without septic shock; N17.0 - Acute kidney failure with tubular necrosis Is this a current diagnosis for this admission?: Yes Plan: Resolved (2) Dehydration Is this a current diagnosis for this admission?: Yes Plan: Resolved, IV fluids discontinued. (3) Nausea and vomiting Qualifiers: Vomiting type: bilious vomiting Qualified Code(s): R11.14 - Bilious vomiti ng Is this a current diagnosis for this admission?: Yes Plan: Resolved (4) ROSALINA (acute kidney injury) Is this a current diagnosis for this admission?: Yes Plan: Resolved (5) Hypokalemia Is this a current diagnosis for this admission?: Yes Plan: Resolved (6) Hypomagnesemia Is this a current diagnosis for this admission?: Yes Plan: Resolved (7) Urinary tract infection Qualifiers: Urinary tract infection type: acute cystitis Hematuria presence: without hematuria Qualified Code(s): N30.00 - Acute cystitis without hematuria Is this a current diagnosis for this admission?: Yes Plan: Improving on Rocephin. Her blood cultures are showing Acinetobacter species. (8) Hypocalcemia Is this a current diagnosis for this admission?: Yes Plan: We will replace as needed (9) Hyponatremia Is this a current diagnosis for this admission?: Yes Plan: improving with IV fluids (10) Bacteremia due to Gram-negative bacteria Is this a current diagnosis for this admission?: Yes Plan: She is showing a pansensitive Acinetobacter species. It is pansensitive and she has been responding to Rocephin. She had an adverse reaction to amoxicillin where she broke it out in a rash and hives, so I would like to give her Augmentin for this but obviously with that history we cannot do that. The next best thing for her from a oral antibiotic standpoint is probably going to be Vantin. We will likely treat her with a bit of an extended course. If she is afebrile overnight I can discharge her home in the morning. - Time Time Spent with patient: 25-34 minutes
[2020-04-17] MEDS: ACETAMINOPHEN 325 MG TABLET PO PRN ×2 (04:22→23:53)
[2020-04-17] MEDS: HEPARIN SOD (PORCINE) 5,000 UNIT/ML 1 ML VIAL SUBCUT SCH ×3 (06:14→22:12)
[2020-04-17] MEDS: CEFTRIAXONE 1 GM/D5W RTU 1 GM/50 ML RTUPB IV SCH (09:50)
[2020-04-17] MEDS: LACTOBACILLUS ACIDOPHILUS 250 MG TAB PO SCH ×2 (09:50→18:31)
[2020-04-17] MEDS: IBUPROFEN 600 MG TABLET PO PRN (12:44)
[2020-04-17] MEDS ORDERED: CEFTRIAXONE RTU 2 GM/D5W 50 ML IV SCH (18:00)
--- NOTE | 2020-04-17 18:03 | PDOC PROGRESS REPORT ---
Subjective Progress Note for:: 04/17/20 Subjective:: No adverse events overnight. She had 2 recorded fevers overnight. White blood cell count is normal. She is feeling better today. Eating and drinking without difficulty. Reason For Visit: SEPSIS,PYELONEPHRITIS Physical Exam Vital Signs: Temp Pulse Resp BP Pulse Ox 98.7 F 53 L 16 114/56 L 99 04/17/20 15:12 04/17/20 15:12 04/17/20 15:12 04/17/20 15:12 04/17/20 15:12 Intake & Output 04/16/20 04/17/20 04/18/20 06:59 06:59 06:59 Intake Total 3376 1180 170 Balance 3376 1180 170 Weight 53.8 kg 53.7 kg 53.7 kg General appearance: PRESENT: no acute distress, cooperative, disheveled, thin Respiratory exam: PRESENT: clear to auscultation dariel, symmetrical, unlabored. ABSENT: accessory muscle use, chest wall tenderness, crackles, prolonged expiratory phas, rhonchi, tachypnea, wheezes Cardiovascular exam: PRESENT: RRR, +S1, +S2 Pulses: PRESENT: normal carotid pulses Vascular exam: PRESENT: normal capillary refill GI/Abdominal exam: PRESENT: normal bowel sounds, soft. ABSENT: distended, guarding, rebound, tenderness Extremities exam: ABSENT: clubbing, pedal edema Musculoskeletal exam: PRESENT: normal inspection. ABSENT: deformity Neurological exam: PRESENT: alert, awake, oriented to person, oriented to place, oriented to situation Psychiatric exam: PRESENT: appropriate affect, normal mood Skin exam: PRESENT: dry, warm Results Laboratory Results: 04/16/20 05:43 04/16/20 05:43 Impressions: Abdomen/Pelvis CT 04/13/20 11:31 IMPRESSION: NO ACUTE FINDINGS.Multiple bilateral renal cysts identified, generally increased in size and number. There are few 2 mm right renal calcified stones. No calcified ureteral stones or hydronephrosis-hydroureter. Assessment and Plan - Diagnosis (1) Sepsis Qualifiers: Sepsis type: sepsis due to unspecified organism Sepsis acute organ dysfunction status: with acute organ dysfunction Severe sepsis acute organ dysfunction type: acute renal failure Acute renal failure type: with acute tubular necrosis Severe sepsis shock status: without septic shock Qualified Code(s): A41.9 - Sepsis, unspecified organism; R65.20 - Severe sepsis without septic shock; N17.0 - Acute kidney failure with tubular necrosis Is this a current diagnosis for this admission?: Yes Plan: Resolved (2) Dehydration Is this a current diagnosis for this admission?: Yes Plan: Resolved, IV fluids discontinued. (3) Nausea and vomiting Qualifiers: Vomiting type: bilious vomiting Qualified Code(s): R11.14 - Bilious vomiting Is this a current diagnosis for this admission?: Yes Plan: Resolved (4) ROSALINA (acute kidney injury) Is this a current diagnosis for this admission?: Yes Plan: Resolved (5) Hypokalemia Is this a current diagnosis for this admission?: Yes Plan: Resolved (6) Hypomagnesemia Is this a current diagnosis for this admission?: Yes Plan: Resolved (7) Urinary tract infection Qualifiers: Urinary tract infection type: acute cystitis Hematuria presence: without hematuria Qualified Code(s): N30.00 - Acute cystitis without hematuria Is this a current diagnosis for this admission?: Yes Plan: Improving on Rocephin. Her blood cultures are showing Acinetobacter species. (8) Hypocalcemia Is this a current diagnosis for this admission?: Yes Plan: We will replace as needed (9) Hyponatremia Is this a current diagnosis for this admission?: Yes Plan: improving with IV fluids (10) Bacteremia due to Gram-negative bacteria Is this a current diagnosis for this admission?: Yes Plan: Even though the susceptibilities show that it sensitive to everything against which it was tested, she still spiking fevers. Acinetobacter bacteremia is not very common, but it is an organism that cannot be overlooked. I have requested an infectious disease consultation. - Time Time Spent with patient: 25-34 minutes
--- NOTE | 2020-04-17 21:22 | Progress Note ---
Provider Note Provider Note: [facility] Telephone Advice Consultation Chart reviewed. Patient is a 30-year-old woman without medical history who pr esented nausea, vomiting, flank pain and dysuria. One day prior to admission she was seen as outpatient and received IV antibiotic. Next day she was admitted and continued with fever. Leukocytosis improved. CT scan negative for pyelonephritis, hydronephrosis nor nephrolithiasis. She has been on ceftriaxone, even though she is feeling better, but still spiking fevers. Blood cultures 1 set positive for Acinetobacter. ID consulted for recommendations. PMH: Unknown PSH: Allergies: doxycycline Allergy (Verified 06/29/19 09:08) Penicillins Allergy (Verified 06/29/19 09:08) Medications: Ketorolac Tromethamine [Toradol 10 mg Tablet] 10 mg PO Q8 04/14/20 Ondansetron HCl [Zofran 8 mg Tablet] 8 mg PO Q12 04/14/20 Vital Signs: Temp Pulse Resp BP Pulse Ox 98.7 F 53 L 16 114/56 L 99 04/17/20 15:12 04/17/20 15:12 04/17/20 15:12 04/17/20 15:12 04/17/20 15:12 Intake & Output 04/16/20 04/17/20 04/18/20 06:59 06:59 06:59 Intake Total 3376 1180 410 Balance 3376 1180 410 Weight 53.8 kg 53.7 kg 53.7 kg Weight/Height Weight 53.7 kg Height 5 ft 3 in Laboratories: 04/16/20 05:43 04/16/20 05:43 MCV 95 fl (80-97) 04/16/20 05:43 MCH 32.5 pg (27.0-33.4) 04/16/20 05:43 MCHC 34.2 g/dL (32.0-36.0) 04/16/20 05:43 RDW 14.0 % (11.5-14.0) 04/16/20 05:43 Seg Neutrophils % Not Reportable 04/13/20 10:50 Chloride 101 mmol/L (98-107) 04/16/20 05:43 Carbon Dioxide 29 mmol/L (22-30) 04/16/20 05:43 Anion Gap 5 (5-19) 04/16/20 05:43 Est GFR ( Amer) > 60 (>60) 04/16/20 05:43 Glucose 150 mg/dL (75-110) H 04/16/20 05:43 Lactic Acid 1.7 mmol/L (0.7-2.1) 04/13/20 20:00 Calcium 8.1 mg/dL (8.4-10.2) L 04/16/20 05:43 Magnesium 1.5 mg/dL (1.6-2.3) L 04/16/20 05:43 Total Bilirubin 0.4 mg/dL (0.2-1.3) 04/13/20 10:50 AST 55 U/L (14-36) H 04/13/20 10:50 Alkaline Phosphatase 72 U/L (38-126) 04/13/20 10:50 Total Protein 5.9 g/dL (6.3-8.2) L 04/13/20 10:50 Albumin 2.9 g/dL (3.5-5.0) L 04/13/20 10:50 Urine Color VIVIAN 04/13/20 13:30 Urine Appearance CLOUDY 04/13/20 13:30 Urine pH 5.0 (5.0-9.0) 04/13/20 13:30 Ur Specific [place] 1.013 04/13/20 13:30 Urine Protein 100 mg/dL (NEGATIVE) H 04/13/20 13:30 Urine Glucose (UA) NEGATIVE mg/dL (NEGATIVE) 04/13/20 13:30 Urine Ketones NEGATIVE mg/dL (NEGATIVE) 04/13/20 13:30 Urine Blood LARGE (NEGATIVE) H 04/13/20 13:30 Urine Nitrite NEGATIVE (NEGATIVE) 04/13/20 13:30 Ur Leukocyte Esterase LARGE (NEGATIVE) H 04/13/20 13:30 Urine WBC (Auto) 141 /HPF 04/13/20 13:30 Urine RBC (Auto) 35 /HPF 04/13/20 13:30 Microbiology: Blood culture 04/13/20 Acinetobacter spp Radiology: Abdomen/Pelvis CT 04/13/20 11:31 IMPRESSION: NO ACUTE FINDINGS.Multiple bilateral renal cysts identified, generally increased in size and number. There are few 2 mm right renal calcified stones. No calcified ureteral stones or hydronephrosis-hydroureter. Assessment and Recommendations: Patient evaluated due to Acinetobacter bacteremia in the setting of urinary tract infection. Even though no evidence of pyelonephritis, but clinically she has an upper urinary tract infection. She continues febrile on ceftriaxone for which will recommend cefepime 1g every 8 hr while she is inpatient and when read y to be discharged can transition to ciprofloxacin 750 mg po bid. Can treat for a total of 10 days. Should avoid magnesium, calcium, zinc, and all divalent cations as they affect the absorption of ciprofloxacin. There is risk of C diff infection, tendon rupture. Please call if any questions. Selene Anderson MD [facility] [phone]
[2020-04-18] MEDS: HEPARIN SOD (PORCINE) 5,000 UNIT/ML 1 ML VIAL SUBCUT SCH ×3 (05:02→21:49)
[2020-04-18] MEDS: CEFEPIME 1 GM/D5W RTU 1 GM/50 ML RTUPB IV SCH ×3 (09:16→18:52)
[2020-04-18] MEDS: LACTOBACILLUS ACIDOPHILUS 250 MG TAB PO SCH ×2 (09:17→18:54)
[2020-04-18] MEDS: ACETAMINOPHEN 325 MG TABLET PO PRN ×2 (09:27→18:54)
[2020-04-18] MEDS ORDERED: ONDANSETRON HCL INJ/PF 4 MG/2 ML SDV IV PRN (14:00)
--- NOTE | 2020-04-18 15:15 | PDOC PROGRESS REPORT ---
Subjective Progress Note for:: 04/18/20 Subjective:: No adverse events overnight. No new complaints. She has been afebrile since early yesterday morning. Eating and drinking without difficulty. Reason For Visit: SEPSIS,PYELONEPHRITIS Physical Exam Vital Signs: Temp Pulse Resp BP Pulse Ox 99.0 F 55 L 16 128/76 H 96 04/18/20 11:01 04/18/20 14:00 04/18/20 11:01 04/18/20 11:01 04/18/20 11:01 Intake & Output 04/17/20 04/18/20 04/19/20 06:59 06:59 06:59 Intake Total 1180 1450 406 Balance 1180 1450 406 Weight 53.7 kg 51.5 kg General appearance: PRESENT: no acute distress, cooperative, disheveled, thin Respiratory exam: PRESENT: clear to auscultation dariel, symmetrical, unlabored. ABSENT: accessory muscle use, chest wall tenderness, crackles, prolonged expiratory phas, rhonchi, tachypnea, wheezes Cardiovascular exam: PRESENT: RRR, +S1, +S2 Pulses: PRESENT: normal carotid pulses Vascular exam: PRESENT: normal capillary refill GI/Abdominal exam: PRESENT: normal bowel sounds, soft. ABSENT: distended, guarding, rebound, tenderness Extremities exam: ABSENT: clubbing, pedal edema Musculoskeletal exam: PRESENT: normal inspection. ABSENT: deformity Neurological exam: PRESENT: alert, awake, oriented to person, oriented to place, oriented to situation Psychiatric exam: PRESENT: appropriate affect, normal mood Skin exam: PRESENT: dry, warm Results Laboratory Results: 04/16/20 05:43 04/16/20 05:43 04/13/20 11:39 Blood Blood Culture - Final NO GROWTH IN 5 DAYS Impressions: Abdomen/Pelvis CT 04/13/20 11:31 IMPRESSION: NO ACUTE FINDINGS.Multiple bilateral renal cysts identified, generally increased in size and number. There are few 2 mm right renal calcified stones. No calcified ureteral stones or hydronephrosis-hydroureter. Assessment and Plan - Diagnosis (1) Sepsis Qualifiers: Sepsis type: sepsis due to unspecified organism Sepsis acute organ dysfunction status: with acute organ dysfunction Severe sepsis acute organ dysfunction type: acute renal failure Acute renal failure type: with acute tubular necrosis Severe sepsis shock status: without septic shock Qualified Code(s): A41.9 - Sepsis, unspecified organism; R65.20 - Severe sepsis without septic shock; N17.0 - Acute kidney failure with tubular necrosis Is this a current diagnosis for this admission?: Yes Plan: Resolved (2) Dehydration Is this a current diagnosis for this admission?: Yes Plan: Resolved, IV fluids discontinued. (3) Nausea and vomiting Qualifiers: Vomiting type: bilious vomiting Qualified Code(s): R11.14 - Bilious vomiting Is this a current diagnosis for this admission?: Yes Plan: Resolved (4) ROSALINA (acute kidney injury) Is this a current diagnosis for this admission?: Yes Plan: Resolved (5) Hypokalemia Is this a current diagnosis for this admission?: Yes Plan: Resolved (6) Hypomagnesemia Is this a current diagnosis for this admission?: Yes Plan: Resolved (7) Urinary tract infection Qualifiers: Urinary tract infection type: acute cystitis Hematuria presence: without hematuria Qualified Code(s): N30.00 - Acute cystitis without hematuria Is this a current diagnosis for this admission?: Yes Plan: Improving on Rocephin. Her blood cultures are showing Acinetobacter species. (8) Hypocalcemia Is this a current diagnosis for this admission?: Yes Plan: We will replace as needed (9) Hyponatremia Is this a current diagnosis for this admission?: Yes Plan: improving with IV fluids (10) Bacteremia due to Gram-negative bacteria Is this a current diagnosis for this admission?: Yes Plan: Infectious disease has recommended changing her over to cefepime, and then discharging her home on Cipro for 10 days of treatment. I have started the cefepime, and I will make sure that she gets a couple of days of that and then we will plan to send her home Wednesday morning. - Time Time Spent with patient: 25-34 minutes
[2020-04-19] MEDS: CEFEPIME 1 GM/D5W RTU 1 GM/50 ML RTUPB IV SCH ×3 (02:24→18:44)
[2020-04-19] MEDS: HEPARIN SOD (PORCINE) 5,000 UNIT/ML 1 ML VIAL SUBCUT SCH ×3 (05:04→22:12)
[2020-04-19] MEDS: LACTOBACILLUS ACIDOPHILUS 250 MG TAB PO SCH ×2 (09:23→18:45)
[2020-04-19] MEDS: IBUPROFEN 600 MG TABLET PO PRN (09:31)
--- NOTE | 2020-04-19 16:33 | PDOC PROGRESS REPORT ---
Subjective Progress Note for:: 04/19/20 Subjective:: No adverse events overnight. No new complaints. Vital signs been stable. No fevers. Appetite is been good. Reason For Visit: SEPSIS,PYELONEPHRITIS Physical Exam Vital Signs: Temp Pulse Resp BP Pulse Ox 98.0 F 56 L 16 127/69 H 99 04/19/20 16:01 04/19/20 16:01 04/19/20 16:01 04/19/20 16:01 04/19/20 16:01 Intake & Output 04/18/20 04/19/20 04/20/20 06:59 06:59 06:59 Intake Total 1450 1186 50 Balance 1450 1186 50 Weight 51.5 kg 52.2 kg General appearance: PRESENT: no acute distress, cooperative, disheveled, thin Respiratory exam: PRESENT: clear to auscultation dariel, symmetrical, unlabored. ABSENT: accessory muscle use, chest wall tenderness, crackles, prolonged expiratory phas, rhonchi, tachypnea, wheezes Cardiovascular exam: PRESENT: RRR, +S1, +S2 Pulses: PRESENT: normal carotid pulses Vascular exam: PRESENT: normal capillary refill GI/Abdominal exam: PRESENT: normal bowel sounds, soft. ABSENT: distended, guarding, rebound, tenderness Extremities exam: ABSENT: clubbing, pedal edema Musculoskeletal exam: PRESENT: normal inspection. ABSENT: deformity Neurological exam: PRESENT: alert, awake, oriented to person, oriented to place, oriented to situation Psychiatric exam: PRESENT: appropriate affect, normal mood Skin exam: PRESENT: dry, warm Results Laboratory Results: 04/16/20 05:43 04/16/20 05:43 Impressions: Abdomen/Pelvis CT 04/13/20 11:31 IMPRESSION: NO ACUTE FINDINGS.Multiple bilateral renal cysts identified, generally increased in size and number. There are few 2 mm right renal calcified stones. No calcified ureteral stones or hydronephrosis-hydroureter. Assessment and Plan - Diagnosis (1) Sepsis Qualifiers: Sepsis type: sepsis due to unspecified organism Sepsis acute organ dysfunction status: with acute organ dysfunction Severe sepsis acute organ dysfunction type: acute renal failure Acute renal failure type: with acute tubular necrosis Severe sepsis shock status: without septic shock Qualified Code(s): A41.9 - Sepsis, unspecified organism; R65.20 - Severe sepsis without septic shock; N17.0 - Acute kidney failure with tubular necrosis Is this a current diagnosis for this admission?: Yes Plan: Resolved (2) Dehydration Is this a current diagnosis for this admission?: Yes Plan: Resolved, IV fluids discontinued. (3) Nausea and vomiting Qualifiers: Vomiting type: bilious vomiting Qualified Code(s): R11.14 - Bilious vomiting Is this a current diagnosis for this admission?: Yes Plan: Resolved (4) ROSALINA (acute kidney injury) Is this a current diagnosis for this admission?: Yes Plan: Resolved (5) Hypokalemia Is this a current diagnosis for this admission?: Yes Plan: Resolved (6) Hypomagnesemia Is this a current diagnosis for this admission?: Yes Plan: Resolved (7) Urinary tract infection Qualifiers: Urinary tract infection type: acute cystitis Hematuria presence: without hematuria Qualified Code(s): N30.00 - Acute cystitis without hematuria Is this a current diagnosis for this admission?: Yes Plan: Improving on Rocephin. Her blood cultures are showing Acinetobacter species. (8) Hypocalcemia Is this a current diagnosis for this admission?: Yes Plan: We will replace as needed (9) Hyponatremia Is this a current diagnosis for this admission?: Yes Plan: improving with IV fluids (10) Bacteremia due to Gram-negative bacteria Is this a current diagnosis for this admission?: Yes Plan: Infectious disease has recommended changing her over to cefepime, and then discharging her home on Cipro for 10 days of treatment. I have started the cefepime, and I will make sure that she gets a couple of days of that and then we will plan to send her home Wednesday morning. - Time Time Spent with patient: 15-24 minutes
[2020-04-20] MEDS: CEFEPIME 1 GM/D5W RTU 1 GM/50 ML RTUPB IV SCH ×2 (01:17→09:33)
[2020-04-20] MEDS: ACETAMINOPHEN 325 MG TABLET PO PRN (01:23)
[2020-04-20] MEDS: HEPARIN SOD (PORCINE) 5,000 UNIT/ML 1 ML VIAL SUBCUT SCH (05:19)
[2020-04-20] MEDS: LACTOBACILLUS ACIDOPHILUS 250 MG TAB PO SCH (09:34)
[2020-04-20 11:25] VITALS: BP 115/57
--- NOTE | 2020-04-20 14:22 | PDOC DISCHARGE SUMMARY ---
Impression - Admit/DC Date/PCP Admission Date/Primary Care Provider: 04/13/20 16:03 Discharge Date: 04/20/20 - Discharge Diagnosis (1) Sepsis Is this a current diagnosis for this admission?: Yes (2) Dehydration Is this a current diagnosis for this admission?: Yes (3) Nausea and vomiting Is this a current diagnosis for this admission?: Yes (4) ROSALINA (acute kidney injury) Is this a current diagnosis for this admission?: Yes (5) Hypokalemia Is this a current diagnosis for this admission?: Yes (6) Hypomagnesemia Is this a current diagnosis for this admission?: Yes (7) Urinary tract infection Is this a current diagnosis for this admission?: Yes (8) Hypocalcemia Is this a current diagnosis for this admission?: Yes (9) Hyponatremia Is this a current diagnosis for this admission?: Yes (10) Bacteremia due to Gram-negative bacteria Is this a current diagnosis for this admission?: Yes - Additional Information Resuscitation Status: Full Code Discharge Diet: Regular Discharge Activity: Activity As Tolerated Referrals: [facility] [Outside] Prescriptions: Ciprofloxacin HCl [Cipro 750 mg Tablet] 750 mg PO BID #20 tablet Home Medications: Ketorolac Tromethamine [Toradol 10 mg Tablet] 10 mg PO Q8 04/14/20 Ondansetron HCl [Zofran 8 mg Tablet] 8 mg PO Q12 04/14/20 Ciprofloxacin HCl [Cipro 750 mg Tablet] 750 mg PO BID #20 tablet 04/20/20 Lactobacillus Acidophilus [Bacid 250 mg Tablet] 250 mg PO BID tab 04/20/20 History of Present Illiness History of Present Illness: NICHOLAS WHITE is a 30 year old female with no significant past medical history who presents with fever and abnormal labs. She first got sick about a week ago she had some nausea and vomiting. She states she could not keep anything down for several days. She has had some nonspecific abdominal pain. She has had some intermittent dysuria. She went to [facility] a couple of days ago when they diagnosed her with a urinary tract infection and gave her some IV fluids and a shot of IV Rocephin. I gave her a prescription for Cipro but she says she has not been able to keep it down. They called her back and told her she needed to go to the hospital because she had a bunch of laboratory abnormalities. In addition to an abnormal urinalysis, she has a leukocytosis, hypokalemia, hypomagnesemia, and hypocalcemia. She also has an elevated creatinine. She has been treated for pyelonephritis in the past. Hospital Course Hospital Course: She was on Cipro until we got cultures back, and she started to have fevers about the time we were considering sending her home. She grew out an Aci netobacter from her blood culture. I consulted infectious disease, and she recommended giving her cefepime for a couple of days and then sending her home on Cipro. She has been on the pain for a couple of days and has been afebrile. I am sending her home with a course of Cipro 750 mg for 10 days of treatment. Her labs and examination were reassuring and she was discharged in stable condition. Physical Exam Vital Signs: Temp Pulse Resp BP Pulse Ox 98.4 F 57 L 16 115/57 L 99 04/20/20 11:23 04/20/20 11:23 04/20/20 11:23 04/20/20 11:23 04/20/20 11:23 Intake & Output 04/19/20 04/20/20 04/21/20 06:59 06:59 06:59 Intake Total 1186 1376 50 Balance 1186 1376 50 Weight 52.2 kg 50.9 kg General appearance: PRESENT: no acute distress, cooperative, disheveled, thin Respiratory exam: PRESENT: clear to auscultation dariel, symmetrical, unlabored. ABSENT: accessory muscle use, chest wall tenderness, crackles, prolonged expiratory phas, rhonchi, tachypnea, wheezes Cardiovascular exam: PRESENT: RRR, +S1, +S2 Pulses: PRESENT: normal carotid pulses Vascular exam: PRESENT: normal capillary refill GI/Abdominal exam: PRESENT: normal bowel sounds, soft. ABSENT: distended, guarding, rebound, tenderness Extremities exam: ABSENT: clubbing, pedal edema Musculoskeletal exam: PRESENT: normal inspection. ABSENT: deformity Neurological exam: PRESENT: alert, awake, oriented to person, oriented to place, oriented to situation Psychiatric exam: PRESENT: appropriate affect, normal mood Skin exam: PRESENT: dry, warm Results Laboratory Results: WBC 6.2 10^3/uL (4.0-10.5) 04/16/20 05:43 RBC 3.73 10^6/uL (3.72-5.28) 04/16/20 05:43 Hgb 12.1 g/dL (12.0-15.5) 04/16/20 05:43 Hct 35.4 % (36.0-47.0) L 04/16/20 05:43 MCV 95 fl (80-97) 04/16/20 05:43 MCH 32.5 pg (27.0-33.4) 04/16/20 05:43 MCHC 34.2 g/dL (32.0-36.0) 04/16/20 05:43 RDW 14.0 % (11.5-14.0) 04/16/20 05:43 Plt Count 141 10^3/uL (150-450) L 04/16/20 05:43 Lymph % (Auto) Not Reportable 04/13/20 10:50 [place] % (Auto) Not Reportable 04/13/20 10:50 Eos % (Auto) Not Reportable 04/13/20 10:50 Baso % (Auto) Not Reportable 04/13/20 10:50 Absolute Neuts (auto) Not Reportable 04/13/20 10:50 Absolute Lymphs (auto) Not Reportable 04/13/20 10:50 Absolute Monos (auto) Not Reportable 04/13/20 10:50 Absolute Eos (auto) Not Reportable 04/13/20 10:50 Absolute Basos (auto) Not Reportable 04/13/20 10:50 Total Counted 100 04/13/20 10:50 Seg Neutrophils % Not Reportable 04/13/20 10:50 Seg Neuts % (Manual) 91 % (42-78) H 04/13/20 10:50 Band Neutrophils % 4 % (3-5) 04/13/20 10:50 Lymphocytes % (Manual) 2 % (13-45) L 04/13/20 10:50 Monocytes % (Manual) 3 % (3-13) 04/13/20 10:50 Eosinophils % (Manual) 0 % (0-6) 04/13/20 10:50 Basophils % (Manual) 0 % (0-2) 04/13/20 10:50 Abs Neuts (Manual) 12.9 10^3/uL (1.7-8.2) H 04/13/20 10:50 Abs Lymphs (Manual) 0.3 10^3/uL (0.5-4.7) L 04/13/20 10:50 Abs Monocytes (Manual) 0.4 10^3/uL (0.1-1.4) 04/13/20 10:50 Absolute Eos (Manual) 0.0 10^3/uL (0.0-0.6) 04/13/20 10:50 Abs Basophils (Manual) 0.0 10^3/uL (0.0-0.2) 04/13/20 10:50 Platelet Comment DECREASED 04/13/20 10:50 RBC Morph Comment NORMO-CYTIC/CHROMIC 04/13/20 10:50 Sodium 135.1 mmol/L (137-145) L 04/16/20 05:43 Potassium 3.4 mmol/L (3.6-5.0) L 04/16/20 05:43 Chloride 101 mmol/L (98-107) 04/16/20 05:43 Carbon Dioxide 29 mmol/L (22-30) 04/16/20 05:43 Anion Gap 5 (5-19) 04/16/20 05:43 BUN 12 mg/dL (7-20) 04/16/20 05:43 Creatinine 0.67 mg/dL (0.52-1.25) 04/16/20 05:43 Est GFR ( Amer) > 60 (>60) 04/16/20 05:43 Est GFR (MDRD) Non-Af > 60 (>60) 04/16/20 05:43 Glucose 150 mg/dL (75-110) H 04/16/20 05:43 Lactic Acid 1.7 mmol/L (0.7-2.1) 04/13/20 20:00 Calcium 8.1 mg/dL (8.4-10.2) L 04/16/20 05:43 Magnesium 1.5 mg/dL (1.6-2.3) L 04/16/20 05:43 Total Bilirubin 0.4 mg/dL (0.2-1.3) 04/13/20 10:50 Direct Bilirubin 0.1 mg/dL (0.0-0.4) 04/13/20 10:50 Neonat Total Bilirubin Not Reportable 04/13/20 10:50 Neonat Direct Bilirubin Not Reportable 04/13/20 10:50 Neonat Indirect Bili Not Reportable 04/13/20 10:50 AST 55 U/L (14-36) H 04/13/20 10:50 ALT 22 U/L (<35) 04/13/20 10:50 Alkaline Phosphatase 72 U/L (38-126) 04/13/20 10:50 Total Protein 5.9 g/dL (6.3-8.2) L 04/13/20 10:50 Albumin 2.9 g/dL (3.5-5.0) L 04/13/20 10:50 Urine Color VIVIAN 04/13/20 13:30 Urine Appearance CLOUDY 04/13/20 13:30 Urine pH 5.0 (5.0-9.0) 04/13/20 13:30 Ur Specific [place] 1.013 04/13/20 13:30 Urine Protein 100 mg/dL (NEGATIVE) H 04/13/20 13:30 Urine Glucose (UA) NEGATIVE mg/dL (NEGATIVE) 04/13/20 13:30 Urine Ketones NEGATIVE mg/dL (NEGATIVE) 04/13/20 13:30 Urine Blood LARGE (NEGATIVE) H 04/13/20 13:30 Urine Nitrite NEGATIVE (NEGATIVE) 04/13/20 13:30 Urine Bilirubin NEGATIVE (NEGATIVE) 04/13/20 13:30 Urine Urobilinogen NEGATIVE mg/dL (<2.0) 04/13/20 13:30 Ur Leukocyte Esterase LARGE (NEGATIVE) H 04/13/20 13:30 Urine WBC (Auto) 141 /HPF 04/13/20 13:30 Urine RBC (Auto) 35 /HPF 04/13/20 13:30 Urine WBC Clumps FEW /HPF 04/13/20 13:30 Squamous Epi Cells Auto 14 /HPF 04/13/20 13:30 U Non-Squamous Epis Auto 2 /HPF 04/13/20 13:30 Amorphous Sediment Auto TRACE /HPF 04/13/20 13:30 Urine Mucus (Auto) OCC /LPF 04/13/20 13:30 Urine Ascorbic Acid NEGATIVE (NEGATIVE) 04/13/20 13:30 Stl C. Difficile GDH Ag NEGATIVE (NEGATIVE) 04/15/20 02:11 Stl C.difficile Tox A&B NEGATIVE (NEGATIVE) 04/15/20 02:11 Impressions: Abdomen/Pelvis CT 04/13/20 11:31 IMPRESSION: NO ACUTE FINDINGS.Multiple bilateral renal cysts identified, gener ally increased in size and number. There are few 2 mm right renal calcified stones. No calcified ureteral stones or hydronephrosis-hydroureter. Plan Time Spent: Greater than 30 Minutes Stroke Is this a Stroke Patient?: No Acute Heart Failure - Is this a Heart Failure Patient?: No
== END 2020-04-20 12:54 | disposition home or self-care (01) | DRG 872 ==
LOC: ER 10:28 → EH 16:03 → 4S 18:18
PROVIDERS: ADMIT Family Medicine; ATTEND Family Medicine
DX: A41.59 Other Gram-negative sepsis (principal); N39.0 Urinary tract infection, site not specified; N17.9 Acute kidney failure, unspecified; E87.1 Hypo-osmolality and hyponatremia; E86.0 Dehydration; E87.6 Hypokalemia; E83.42 Hypomagnesemia; E83.51 Hypocalcemia; Z88.0 Allergy status to penicillin; Z88.1 Allergy status to other antibiotic agents
CPT/HCPCS: 36415; 74176; 80048; 80053; 81001; 83605; 83735; 85025; 85027; 87040; 87077; 87150; 87186; 87324; 87449; 96361; 96365; 96367; 96375; 96376; 99284; J0610; J0692; J0696; J2270; J2405; J3475; J3480; J7030; J7120